=== PATIENT | male | born 1985 | race Caucasian/White ===

== ENCOUNTER 2017-12-25 05:56 | Emergency (ER) | payer MEDICAID, OTHER ==
[~2017-12-25] VITALS: Ht 182.9 cm; Wt 101.0 kg
[~2017-12-25 05:56] MED LIST: IBUP-1986 PO
[2017-12-25 05:59] VITALS: BP 119/81
[2017-12-25 07:24] LABS: CLARITY,URINE SLIGHTLY CLOUDY (Clear); COLOR,URINE YELLOW (Yellow); GLUCOSE, URINE NEGATIVE (Neg); KETONES,URINE NEGATIVE (Neg); LEUKOCYTE ESTERASE ,URINE NEGATIVE (Neg); NITRITES, URINE NEGATIVE (Neg); OCCULT BLOOD,URINE MODERATE (Neg); PROTEIN,URINE NEGATIVE (Neg); UROBILINOGEN,URINE 0.2 E.U/dL (0.2-1.0)
[2017-12-25 07:25] LABS: UA COLLECTION TYPE CLN CATCH MIDSTREAM
[2017-12-25 07:34] LABS: AMORPHOUS URATES 1+; BACTERIA,URINE FEW /HPF (Neg); MUCUS STRANDS NONE SEEN /LPF (Neg); RBC,URINE 20-50 /HPF (0-2); SQUAMOUS EPITHELIAL CELL,UR FEW /LPF (FEW); WBC,URINE NONE SEEN /HPF (0-4)
== END 2017-12-25 08:56 | disposition left against medical advice (07) ==
LOC: ER 05:56
DX: A64 Unspecified sexually transmitted disease (principal); Z53.21 Procedure and treatment not carried out due to patient leaving prior to being seen by health care provider
CPT/HCPCS: 36415; 81001; 87491; 99281

== ENCOUNTER 2020-10-18 13:19 | Emergency (ER) | payer MEDICAID ==
[~2020-10-18] VITALS: Ht 185.4 cm; Wt 100.0 kg
[2020-10-18] MEDS ORDERED: ONDA4TAB6 PO (13:57)
[2020-10-18] MEDS ORDERED: ALBU18HF2 INH (13:57)
[2020-10-18] MEDS ORDERED: DOXY100C43 PO (13:57)
[2020-10-18] MEDS ORDERED: PRED20TA PO (13:57)
== END 2020-10-18 14:30 | disposition home or self-care (01) ==
LOC: ER 13:19
DX: J20.9 Acute bronchitis, unspecified (principal); Z20.822 Contact with and (suspected) exposure to COVID-19; F17.200 Nicotine dependence, unspecified, uncomplicated; Z72.89 Other problems related to lifestyle; Z79.2 Long term (current) use of antibiotics; Z79.899 Other long term (current) drug therapy
CPT/HCPCS: 36415; 87635; 99283